=== PATIENT | male | born 1980 | race Caucasian/White ===

== ENCOUNTER → 2020-06-09 08:49 | Outpatient (CLI) | payer OTHER, SELFPAY ==
--- NOTE | 2020-06-09 | DI.MRI.S_ITS ---
PROCEDURE: MR KNEE RT WO CON INDICATIONS: RIGHT KNEE PAIN, subacute. Status post injury. TECHNIQUE: Noncontrast sagittal PD fast spin echo and T2 fast spin echo with fat saturation, sagittal 3-D FLASH with fat saturation; coronal T1 spin echo and PD fast spin echo with fat saturation, and axial PD fast spin echo with fat saturation through the knee. COMPARISON: None. FINDINGS: Menisci: Medial meniscus intact. Lateral meniscus intact. Cruciate ligaments: Anterior cruciate ligament appears intact. Posterior cruciate ligament appears intact. Medial structures: The medial collateral ligament appears intact. Mild semimembranosus insertional tendinopathy Visualized portions of the pes anserinus tendons appear normal. No abnormal bursal fluid. Lateral structures: The lateral collateral ligament intact. Biceps femoris tendon appears intact. Popliteus tendon grossly unremarkable. Iliotibial band appears intact. Anterior structures: There is possible hematoma anterior to the tibial tuberosity with adjacent soft tissue edema. This measures 0.6 x 1.8 cm on sagittal pulse sequences. Quadriceps tendon intact. Lateral patellofemoral ligament appears grossly intact. There is mild thickening of the medial patellofemoral ligament at the patellar attachment. There is mild patellar tendinopathy. Prepatellar and superficial infrapatellar subcutaneous edema/fluid. Bones and cartilage: No focal marrow contusion or discrete low signal fracture line. Intraosseous ganglion cyst at the tibial eminence, subcentimeter in size. Within the medial compartment, diffuse surface fraying of the central weight-bearing femoral and tibial cartilage. Within the lateral compartment, intra substance signal change involving the weight-bearing tibial cartilage. Within the patellofemoral compartment, prominent fissuring and partial-thickness loss of the patellar cartilage diffusely. The femoral trochlear cartilage appears grossly intact. Joint space: No joint effusion. Trace subcentimeter Escalera's cyst measuring No specific evidence of intra-articular loose body. IMPRESSION: Presumed hematoma adjacent to the tibial tuberosity with surrounding soft tissue edema. Recommend clinical surveillance to document resolution. Patellar tendinopathy with adjacent fluid and soft tissue edema. Patellofemoral chondromalacia Low-grade sprain of the medial patellofemoral ligament at the patellar attachment Mild semimembranosus insertional tendinopathy Dictated by: Michele Tidwell M.D. on 06/09/2020 at 10:10 Approved by: Michele Tidwell M.D. on 06/09/2020 at 10:27
== END ==
PROVIDERS: Referring Provider Family Medicine; Visit Provider Family Medicine
DX: M25.561 Pain in right knee (principal); S76.111A Strain of right quadriceps muscle, fascia and tendon, initial encounter; M22.41 Chondromalacia patellae, right knee
CPT/HCPCS: 73721